=== PATIENT | female | born 1945 | race Caucasian/White ===

== ENCOUNTER → 2021-04-05 | Outpatient (CLI) | payer MEDICARE, OTHER ==
[2020-06-26 15:00] VITALS: BP 118/56
[~2021-04-05] MED LIST: ASPI325T11 PO; BIMA2.5D RIGHTEYE; BRIN8DRO RIGHTEYE; BUDE10.2 IH; EMPA25TA PO; FEXO180T16 PO; FLUT50DI IH; INSU100V13 SQ; INSU100V5 IJ; LEVO137T44 PO; OMEP40CA7 PO; PRED20TA PO
--- NOTE | 2021-04-05 17:33 | KCIC ---
US DPLX ARTR EXTREM LOWER BILAT Indication: Reason: Peripheral Vascular Disease; Resting leg pain; Diabetic / Spl. Instructions: / H istory: Comparison: None. Procedure: Real-time grayscale, color flow Doppler, and Doppler spectral waveform analysis of the art erial system of the lower extremity is performed. Findings: Right lower extremity: Moderate atheromatous plaque. Monophasic waveforms throughout the majority of the right lower extremity. Elevated velocity within the right common femoral artery measures 183 cm/s Elevated velocity within the deep femoral artery measures 234 cm/s. Occlusion of the distal superfic ial femoral artery with reconstitution of the popliteal artery. Posterior tibial artery not identifie d distally, may indicate occlusion. Right popliteal cyst measures 5.3 x 1.8 cm. Left lower extremity: Monophasic waveforms throughout the mid to distal left lower extremity. Elevate d velocity within the left common femoral artery measures 170 cm/s. Distal posterior tibial artery no t identified. Moderate atheromatous plaque. IMPRESSION: 1. 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 CT angiogram can further assess. 2. Distal bilateral posterior tibial arteries not well seen, may indicate occlusion. 3. Moderately elevated velocity within the RIGHT deep femoral artery, may indicate 50-75 percent cayla nosis. 4. Mildly elevated velocity within the bilateral common femoral arteries, may indicate 30-49 percent stenosis. 5. Moderate bilateral atheromatous plaque. Electronically signed by: Jameel Persaud DO (04/05/2021 5:30 PM) [id number]
== END ==
LOC: KCIC US 13:36
PROVIDERS: ATTEND Podiatrist Foot & Ankle Surgery
DX: E11.51 Type 2 diabetes mellitus with diabetic peripheral angiopathy without gangrene (principal); I70.223 Atherosclerosis of native arteries of extremities with rest pain, bilateral legs
CPT/HCPCS: 93925